=== PATIENT | male | born 1965 | race Caucasian/White ===

== ENCOUNTER 2018-07-18 16:24 | Emergency (ER) | payer OTHER, SELFPAY ==
--- NOTE | 2018-07-18 16:36 | NUR.NOTE ---
pt was involved in a skiing accident approximately 7 days ago since then the PT has had continuous pain in this right calf
[2018-07-18 16:37] VITALS: BP 123/77; PULSE 61; RESP 17; TEMP 37; O2SAT 100
--- NOTE | 2018-07-18 16:53 | DI.RAD_ITS ---
SYMPTOM/DIAGNOSIS: RT MID CALF AND RT KNEE PAIN, S/P FALL SKIING RIGHT KNEE: There is artifact related to overlying material. No fracture or joint effusion is seen. The joint spaces are well maintained. There is minimal chante-articular spurring. IMPRESSION: No acute abnormality. RIGHT TIB-FIB: No fracture is identified. The ankle and knee are unremarkable as visualized. IMPRESSION: Negative right tibia and fibula.
[2018-07-18] MEDS: Lidocaine 5% Patch 1 PATCH TP (17:03)
--- NOTE | 2018-07-18 17:13 | W.ED.GENAD ---
Discharge Plan Disposition Patient Disposition: HOME Condition: Good Discharge Details Chief Complaint: Orthopedic Clinical Impression: Calf pain Primary Care Provider: Unknown,Unknown ED Provider: Joe Srivastava Home Meds and New Rx's Prescriptions: New lidocaine [Lidoderm] 1 PATCH patch 1 patch Topical Q24H Qty: 4 RF: 0 Discharge Instructions Instructions: Leg Pain (ED) Additional Instructions: Please continue to use heating pad, Tylenol and Motrin for the pain. Please use the medication as directed. Please return on Saturday for your ultrasound. If you notice any worsening of your symptoms, or any new symptoms such as vomiting, diarrhea, fever, chills, shortness of breath, chest pain, numbness, weakness, or fainting , please return immediately to the emergency department for reevaluation. Please follow up with your primary care provider as soon as possible for reassessment and reevaluation. As always, it was a pleasure participating in your medical care today. Medical Decision Making This is a 53-year-old male with no significant past medical history who presents today for evaluation of right calf pain. One week ago the patient gotten a skin accident and had some pain in his calf after this. The pain radiates from the posterior knee to the mid calf. Pain is made worse with dorsiflexion, as well as with stretching of the gastrocnemius muscle. Minor bruising is present in the calf, as well as down by the distal Achilles tendon. Vascular exam and neurologic exam is benign. The exam demonstrates no significant abnormalities otherwise. Ankle exam is benign. Plain films were ordered and demonstrate no evidence of acute fracture in the knee or tib-fib. I do feel that the patient signs and symptoms are clinically consistent with a small muscle tear of the gastrocnemias or a soleus muscle tear. I feel that a soleus muscle tear is more likely. We will get an ultrasound of his right lower extremity to rule out any significant tendon abnormality, I feel that a blood clot is unlikely but I feel that evaluation of this is reasonable. Currently ultrasound is not available and so we will schedule outpatient ultrasound on Saturday. I did discuss potential anticoagulation in the meantime and the patient is requested to hold off in any anticoagulation for the time being. Recommend continued heat, Tylenol, and Motrin. Lidoderm patch was placed on the patient and he has nearly complete resolution of symptoms after this. We will send him home with a prescription for continued Lidoderm patch. I have extensively reviewed the treatment plan and discharge instructions with the patient. I have addressed all patient concerns at this time. The patient was made aware of what symptoms to monitor for that would warrant a return to the emergency department. Discussed the plan with the patient, they demonstrate verbal understanding and agreement with our assessment and plan at this time. HPI General Date/Time Provider Initiated Documentation: 07/18/18 16:31. HPI Narrative: This is a 53-year-old male with no significant past medical history who presents today for evaluation of right calf and knee pain. The patient states that he was skiing 7 days ago when he fell and tumbled. Immediately afterwards he had pain in his posterior proximal calf as well as his knee. He has been using ice and ibuprofen, and has had improvement of his pain with this. Fortunately his pain is continued. He does have associated swelling and bruising in his posterior calf and around his ankle. He denies any severe ankle pain. He denies any associated numbness tingling or weakness. He denies any history of blood clots, long flights, long trips, recent surgeries or procedures. Symptoms are made worse by passively dorsiflexing his foot, as well as stretching his knee or calf. He denies any chest pain, shortness of breath, hemoptysis. He denies any other complaints at this time or other modifying factors. Related Data Home Medications Medication Instructions Recorded Confirmed lidocaine [Lidoderm] 1 patch TOPICAL Q24H #4 patch 07/18/18 Previous Rx's Medication Instructions Recorded lidocaine [Lidoderm] 1 patch TOPICAL Q24H #4 patch 07/18/18 Allergies Allergy/AdvReac Type Severity Reaction Status Date / Time No Known Allergies Allergy Unverified 07/18/18 16:46 General Stated Complaint: Orthopedic LAKIA: 4 Review of Systems Review of Systems All systems reviewed & are unremarkable except as noted in HPI and below PFSH Social History Smoking and Tabacco status: Never Exam Narrative Exam Narrative: 1.Const: Well-nourished, Well-developed, appearing stated age 2.Eyes: PERRL, no conjunctival injection, and symmetrical lids. 3.ENT: Atraumatic external nose and ears. Moist MM. Neck: Symmetric, trachea midline, No thyromegaly. 4.CVS: +S1/S2, No murmurs or gallops. Peripheral pulses 2+ and equal in all extremities. Brisk capillary refill in all extremities. 5.RESP: Unlabored respiratory effort. Clear to auscultation bilaterally. No wheezes rales or rhonchi 6.GI: Soft, Nontender/Nondistended, No hepatosplenomegaly. No guarding or rebound. 7.MSK: Normocephalic, Extremities w/o deformity. No cyanosis or clubbing. Patient has +5 out of 5 strength in the lower extremities in dorsiflexion and plantarflexion, knee flexion and extension, hip flexion and extension. There is +2 over 2 dorsalis pedis pulses bilaterally. There is normal sensation to the skin with light touch at the foot knee and hip. Subjective tenderness on palpation of the proximal posterior calf. No pain with varus or valgus stressing, negative Dain's test, no pain with patellar grind test. Reproducible pain on palpation of the lateral medial and mid calf. No significant swelling or deformity. Patient does appear to demonstrate intact strength for his Achilles tendon. Minimal bruising noted around the distal Achilles tendon. No significant reproducible ankle tenderness on exam or laxity. Capillary refill is brisk. Two-point discrimination present for all toes. 8.Skin: Warm, Dry. No rashes or lesions. 9.Neuro: radiological technologist II-XII grossly intact. Sensation grossly intact, no focal neurologic deficits. 10.Psych: (AAO) x3. Appropriate mood and affect Course Vital Signs Temperature 37 C 07/18/18 16:37 Pulse 61 07/18/18 16:37 Respiratory Rate 17 07/18/18 16:37 Blood Pressure 123/77 07/18/18 16:37 Pulse Oximetry 100 07/18/18 16:37 Temperature 37 C 07/18/18 16:37 Temperature Source Skin 07/18/18 16:37 Pulse 61 07/18/18 16:37 Respiratory Rate 17 07/18/18 16:37 Respiratory Effort 07/18/18 16:44 Blood Pressure 123/77 07/18/18 16:37 Pulse Oximetry 100 07/18/18 16:37 Oxygen Delivery Method Room Air 07/18/18 16:37 Oxygen Flow Rate 0 07/18/18 16:37 Pain Level 6 07/18/18 16:37
--- NOTE | 2018-07-18 17:27 | DI.VRAD_ITS ---
EXAM: XR Right Knee, 3 Views EXAM DATE/TIME: 07/18/2018 4:55 PM CLINICAL HISTORY: 53 years old, male; Pain; Knee; Right; Patient HX: Right knee pain after fall TECHNIQUE: XR Right knee 3 views. COMPARISON: No relevant prior studies available. FINDINGS: Bones/joints: Bony mineralization is within normal limits. There is no acute fracture or dislocation. Mild degenerative changes are seen in the right knee most prominent at the patellofemoral compartment. There is some mild nonspecific periostitis involving the proximal, lateral tibial cortex. Soft tissues: Soft tissues are unremarkable. IMPRESSION: No acute findings by plain film exam. Dictated and Authenticated by: Tammie Medrano MD. Ordering:ROSA Diaz MD
--- NOTE | 2018-07-18 17:28 | DI.VRAD_ITS ---
EXAM: XR Right Tibia and Fibula, 2 Views EXAM DATE/TIME: 07/18/2018 5:11 PM CLINICAL HISTORY: 53 years old, male; Pain; Lower leg; Right; Patient HX: Right mid calf pain after fall TECHNIQUE: XR Right tibia and fibula 2 views COMPARISON: No relevant prior studies available. FINDINGS: Bones/joints: There is no evidence of an acute fracture or dislocation. There is some mild nonspecific periostitis involving the proximal lateral tibial cortex. Soft tissues: Soft tissues are unremarkable. IMPRESSION: No acute findings by plain film exam Dictated and Authenticated by: Tammie Medrano MD. Ordering:ROSA Diaz MD
== END 2018-07-18 18:09 | disposition home or self-care (01) ==
PROVIDERS: Emergency Provider Student in an Organized Health Care Education/Training Program
DX: M79.661 Pain in right lower leg (principal); V00.321A Fall from snow-skis, initial encounter; Y93.23 Activity, snow (alpine) (downhill) skiing, snowboarding, sledding, tobogganing and snow tubing
CPT/HCPCS: 73562; 99284; 73590

== ENCOUNTER 2018-07-21 13:56 | Emergency (ER) | payer OTHER, SELFPAY ==
[2018-07-21 14:02] VITALS: BP 131/76; PULSE 67; RESP 16; TEMP 36.7; O2SAT 100
--- NOTE | 2018-07-21 14:12 | W.ED.GENAD ---
Discharge Plan Disposition Patient Disposition: HOME Condition: Improving Discharge Details Chief Complaint: GenMedical Clinical Impression: Gastrocnemius muscle tear Primary Care Provider: Unknown,Unknown ED Provider: Cornelio Foreman Home Meds and New Rx's Prescriptions: No Action lidocaine [Lidoderm] 1 PATCH patch 1 patch Topical Q24H Qty: 4 RF: 0 Discharge Instructions Additional Instructions: As we discussed your ultrasound showed evidence of a Corona's cyst, there was no evidence of a deep vein thrombosis, and you likely have blood tracking in the area of bruising from a partial medial gastrocnemius muscle tear. Rest, ice, compression to reduce discomfort. Please follow-up with physical therapy as prescribed. May use acetaminophen as needed for discomfort. Return for any acute concern Stand Alone Forms: Physical Therapy Referral Medical Decision Making 53-year-old male referred from ultrasound. He was seen in the emergency department on July 18 after an injury while skiing. Patient was skiing in [place] findings with his foot in dorsiflexed position when he pitched forward without released from the findings. This caused pain over the medial lower leg. On ultrasound today patient did have evidence of a Corona's cyst as well as medial tibia fluid collection. No evidence of DVT. Most consistent with partial medial gastrocnemius tear due to the forced extension while in a dorsiflexed position in the ski boot. I discussed this with him. Will use compression, ice, rest and a referral to physical therapy. He is stable for outpatient management. [facility] General Mode of arrival: ambulatory. Date/Time Provider Initiated Documentation: 07/21/18 13:58. Limitations to Documentation: no limitations. Information obtained by: patient. History of Present Illness 53 year old M presents to the emergency department with the chief complaint of Referred from ultrasound after injury right leg evaluated this weekend, described as mild, Quality is described as dull, and is localized to the right and lower extremity. Patient reports no radiation. Patient started experiencing this day(s) and it has been constant. Rest improves symptom(s), Movement worsens symptoms . Patient did receive the following treatments prior to arrival, none Related Data Home Medications Medication Instructions Recorded Confirmed lidocaine [Lidoderm] 1 patch TOPICAL Q24H #4 patch 07/18/18 07/21/18 Previous Rx's Medication Instructions Recorded lidocaine [Lidoderm] 1 patch TOPICAL Q24H #4 patch 07/18/18 Allergies Allergy/AdvReac Type Severity Reaction Status Date / Time No Known Allergies Allergy Unverified 07/21/18 14:03 General Stated Complaint: GenMedical LAKIA: 3 Review of Systems Review of Systems 4 systems reviewed and otherwise negative [facility] Social History Smoking and Tabacco status: Never Exam Narrative Exam Narrative: GEN: awake, alert, oriented 3. Pleasant, well groomed, interactive. HEAD: Normocephalic, atraumatic EXT: Full ROM, right lower extremity has tenderness overlying the medial gastrocnemius. There is ecchymosis from the calf distal to the medial ankle. Range of motion is intact, motor 5 out of 5. No cords appreciated. Neuro: Grossly normal neurologic exam, conversant, interactive. Psych: Speech fluent, thoughts congruent, affect normal Course Vital Signs Temperature 36.7 C 07/21/18 14:02 Pulse 67 07/21/18 14:02 Respiratory Rate 16 07/21/18 14:02 Blood Pressure 131/76 07/21/18 14:02 Pulse Oximetry 100 07/21/18 14:02 Temperature 36.7 C 07/21/18 14:02 Temperature Source Skin 07/21/18 14:02 Pulse 67 07/21/18 14:02 Respiratory Rate 16 07/21/18 14:02 Blood Pressure 131/76 07/21/18 14:02 Pulse Oximetry 100 07/21/18 14:02 Oxygen Delivery Method Room Air 07/21/18 14:02 Oxygen Flow Rate 0 07/21/18 14:02 Pain Level 7 07/21/18 14:02
--- NOTE | 2018-07-21 14:15 | ED.GENADUL_ITS ---
Discharge Plan Disposition Patient Disposition: HOME Condition: Improving Discharge Details Chief Complaint: GenMedical Clinical Impression: Gastrocnemius muscle tear Primary Care Provider: Unknown,Unknown ED Provider: Cornelio Foreman Home Meds and New Rx's Prescriptions: No Action lidocaine [Lidoderm] 1 PATCH patch 1 patch Topical Q24H Qty: 4 RF: 0 Discharge Instructions Additional Instructions: As we discussed your ultrasound showed evidence of a Corona's cyst, there was no evidence of a deep vein thrombosis, and you likely have blood tracking in the area of bruising from a partial medial gastrocnemius muscle tear. Rest, ice, compression to reduce discomfort. Please follow-up with physical therapy as prescribed. May use acetaminophen as needed for discomfort. Return for any acute concern Stand Alone Forms: Physical Therapy Referral Medical Decision Making 53-year-old male referred from ultrasound. He was seen in the emergency department on July 18 after an injury while skiing. Patient was skiing in [place] findings with his foot in dorsiflexed position when he pitched forward without released from the findings. This caused pain over the medial lower leg. On ultrasound today patient did have evidence of a Corona's cyst as well as medial tibia fluid collection. No evidence of DVT. Most consistent with partial medial gastrocnemius tear due to the forced extension while in a dorsiflexed position in the ski boot. I discussed this with him. Will use compression, ice, rest and a referral to physical therapy. He is stable for outpatient management. [facility] General Mode of arrival: ambulatory . Date/Time Provider Initiated Documentation: 07/21/18 13:58 . Limitations to Documentation: no limitations . Information obtained by: patient . History of Present Illness 53 year old M presents to the emergency department with the chief complaint of Referred from ultrasound after injury right leg evaluated this weekend, described as mild, Quality is described as dull, and is localized to the right and lower extremity. Patient reports no radiation. Patient started experiencing this day(s) and it has been constant. Rest improves symptom(s), Movement worsens symptoms . Patient did receive the following treatments prior to arrival, none Related Data Home Medications Medication Instructions Recorded Confirmed lidocaine [Lidoderm] 1 patch TOPICAL Q24H #4 patch 07/18/18 07/21/18 Previous Rx's Medication Instructions Recorded lidocaine [Lidoderm] 1 patch TOPICAL Q24H #4 patch 07/18/18 Allergies Allergy/AdvReac Type Severity Reaction Status Date / Time No Known Allergies Allergy Unverified 07/21/18 14:03 General Stated Complaint: GenMedical LAKIA: 3 Review of Systems Review of Systems 4 systems reviewed and otherwise negative [facility] Social History Smoking and Tabacco status: Never Exam Narrative Exam Narrative: GEN: awake, alert, oriented 3. Pleasant, well groomed, interactive. HEAD: Normocephalic, atraumatic EXT: Full ROM, right lower extremity has tenderness overlying the medial gastrocnemius. There is ecchymosis from the calf distal to the medial ankle. Range of motion is intact, motor 5 out of 5. No cords appreciated. Neuro: Grossly normal neurologic exam, conversant, interactive. Psych: Speech fluent, thoughts congruent, affect normal Course Vital Signs Temperature 36.7 C 07/21/18 14:02 Pulse 67 07/21/18 14:02 Respiratory Rate 16 07/21/18 14:02 Blood Pressure 131/76 07/21/18 14:02 Pulse Oximetry 100 07/21/18 14:02 Temperature 36.7 C 07/21/18 14:02 Temperature Source Skin 07/21/18 14:02 Pulse 67 07/21/18 14:02 Respiratory Rate 16 07/21/18 14:02 Blood Pressure 131/76 07/21/18 14:02 Pulse Oximetry 100 07/21/18 14:02 Oxygen Delivery Method Room Air 07/21/18 14:02 Oxygen Flow Rate 0 07/21/18 14:02 Pain Level 7 07/21/18 14:02
== END 2018-07-21 14:48 | disposition home or self-care (01) ==
PROVIDERS: Emergency Provider Emergency Medicine
DX: S86.111A Strain of other muscle(s) and tendon(s) of posterior muscle group at lower leg level, right leg, initial encounter (principal); X50.9XXA Other and unspecified overexertion or strenuous movements or postures, initial encounter; V00.321A Fall from snow-skis, initial encounter; Y93.23 Activity, snow (alpine) (downhill) skiing, snowboarding, sledding, tobogganing and snow tubing; M71.21 Synovial cyst of popliteal space [Baker], right knee